=== PATIENT | male | born 1990 | race African-American/Black ===

== ENCOUNTER 2023-10-31 13:41 | Emergency (ER) | payer SELFPAY ==
[2023-10-31] MEDS ORDERED: HYDROcodone/Acetaminophen 10/325 mg Tablet ONE (14:43)
[2023-10-31] MEDS ORDERED: Ondansetron ODT 4 MG TAB ONE (14:43)
== END 2023-10-31 14:55 | disposition home or self-care (01) ==
LOC: CSHERS 13:41
DX: B02.9 Zoster without complications (principal)
CPT/HCPCS: 99282; Q0162

== ENCOUNTER 2024-02-02 08:28 | Emergency (ER) | payer SELFPAY | END 2024-02-02 11:00 | disposition home or self-care (01) | LOC: CSHERS 08:28 | DX: K62.5 Hemorrhage of anus and rectum (principal); I10 Essential (primary) hypertension; F17.210 Nicotine dependence, cigarettes, uncomplicated | CPT/HCPCS: 74018 ==